=== PATIENT | female | born 1980 | race American Indian/Alaskan Native ===

== ENCOUNTER 2017-04-20 01:50 | Emergency (ER) | payer MEDICAID ==
[2017-04-20 02:10] VITALS: BP 131/70; PULSE 83; RESP 16; TEMP 98.8; O2SAT 99
--- NOTE | 2017-04-20 02:17 | ED PDOC ---
HPI: Dental Pain/Injury Time Seen by Provider: 04/20/17 02:10 Chief Complaint (Nursing): ENT Problem Chief Complaint (Provider): dental pain History Per: Patient Additional Complaint(s): 36-year-old female with no past medical history presents to emergency department with dental pain and facial swelling 3 days. Patient states that she took Excedrin today but this did not help the pain. Pain became so severe prompting ED visit. Patient denies fever or chills. She has pain to left lower jaw that radiates into her ear. She is tolerating liquids and solids. Past Medical History Reviewed: Historical Data, Nursing Documentation, Vital Signs Vital Signs: Last Vital Signs Temp 98.8 F 04/20/17 02:06 Pulse 83 04/20/17 02:06 Resp 16 04/20/17 02:06 BP 131/70 04/20/17 02:06 Pulse Ox 99 04/20/17 02:06 - Medical History PMH: No Chronic Diseases - Surgical History Surgical History: No Surg Hx - Family History Family History: States: No Known Family Hx - Living Arrangements Living Arrangements: With Family - Social History Current smoker - smoking cessation education provided: No Alcohol: None Drugs: Denies - Home Medications Home Medications: Ambulatory Orders Medication Instructions Recorded Clindamycin [Cleocin] 300 mg PO TID #21 cap 04/20/17 traMADol [Ultram] 50 mg PO TID PRN #15 tab 04/20/17 - Allergies Allergies/Adverse Reactions: Allergies Allergy/AdvReac Type Severity Reaction Status Date / Time No Known Allergies Allergy Verified 04/20/17 02:10 Review of Systems ROS Statement: Except As Marked, All Systems Reviewed And Found Negative Constitutional: Negative for: Fever ENT: Positive for: Other (dental pain) Physical Exam - Reviewed Nursing Documentation Reviewed: Yes Vital Signs Reviewed: Yes - Physical Exam Appears: Positive for: Well, Non-toxic, No Acute Distress Skin: Negative for: Rash Eye Exam: Positive for: Normal appearance ENT: Positive for: Other (Recent tooth is noted to left lower mandible protruding through the gums, mild gingival erythema and swelling noted with no discrete abscess or active drainage, full range of motion lower mandible, mild swelling noted to left mandibular region with no facial cellulitis) Neck: Positive for: Normal Neurologic/Psych: Positive for: Alert, Oriented - Laboratory Results Urine POC: Negative - ECG O2 Sat by Pulse Oximetry: 99 Pulse Ox Interpretation: Normal Medical Decision Making Medical Decision Making: Patient: Dental pain Plan: test Tylenol and Motrin Tramadol Initial dose clindamycin Patient given prescriptions for clindamycin and tramadol. She was advised to contact dentist to arrange for follow-up visit this coming week. Disposition - Clinical Impression Clinical Impression: Pain, dental - Patient ED Disposition Is Patient to be Admitted: No Counseled Patient/Family Regarding: Diagnosis, Need For Followup, Rx Given - Disposition Referrals: Jackson Jones MD [Primary Care Provider] - Disposition: Routine/Home Disposition Time: 02:15 Condition: STABLE Additional Instructions: Continue with [id number] Tylenol every 4 hours and ibuprofen every 6 hours alternating for pain control. Take prescription meds as directed. Call dentist first thing in the morning to arrange for appointment this week. Prescriptions: Clindamycin [Cleocin] 300 mg PO TID #21 cap traMADol [Ultram] 50 mg PO TID PRN #15 tab PRN Reason: Pain, Moderate (4-7) Instructions: Toothache (ED) Forms: [facility] ([place])
== END 2017-04-20 02:50 | disposition home or self-care (01) ==
LOC: H.ER 01:50
DX: K08.89 Other specified disorders of teeth and supporting structures (principal)

== ENCOUNTER 2017-12-29 10:20 | Emergency (ER) | payer MEDICAID ==
[2017-12-29 10:45] VITALS: O2SAT 100
[2017-12-29 10:48] VITALS: BMI 21.5
--- NOTE | 2017-12-29 12:31 | ED PDOC ---
HPI: Female Pain Time Seen by Provider: 12/29/17 10:52 Chief Complaint (Nursing): Abdominal Pain Chief Complaint (Provider): Abdominal cramping History Per: Patient History/Exam Limitations: no limitations Additional Complaint(s): Pt @ 4 weeks gestation presents with lower abdominal cramping X 1 week, took Advil without relief. Denies fever, nausea, vomiting, constipation, diarrhea, dysuria, hematuria, vaginal discharge, vaginal bleeding. Abnormal Vaginal Bleeding: No Last Menstral Period: 11/17/17 : 3 Para: 0 Past Medical History Reviewed: Nursing Documentation, Vital Signs Vital Signs: Last Vital Signs Temp 98 F 12/29/17 10:45 Pulse 89 12/29/17 10:45 Resp BP 113/75 12/29/17 10:45 Pulse Ox 100 12/29/17 10:45 - Medical History PMH: Hypothyroidism - Surgical History Surgical History: No Surg Hx - Family History Family History: States: Unknown Family Hx - Social History Current smoker - smoking cessation education provided: No Alcohol: None - Immunization History Hx Tetanus Toxoid Vaccination: No Hx Influenza Vaccination: No Hx Pneumococcal Vaccination: No - Home Medications Home Medications: Ambulatory Orders Medication Instructions Recorded Clindamycin [Cleocin] 300 mg PO TID #21 cap 04/20/17 traMADol [Ultram] 50 mg PO TID PRN #15 tab 04/20/17 Vit Calc,Iron,Folic 1 each PO DAILY #30 tablet 12/29/17 [ Vitamins] - Allergies Allergies/Adverse Reactions: Allergies Allergy/AdvReac Type Severity Reaction Status Date / Time No Known Allergies Allergy Verified 04/20/17 02:10 Review of Systems Constitutional: Negative for: Fever, Chills Cardiovascular: Negative for: Chest Pain Respiratory: Negative for: Cough, Shortness of Breath Gastrointestinal: Positive for: Abdominal Pain. Negative for: Nausea, Vomiting , Diarrhea Genitourinary Female: Negative for: Dysuria, Frequency, Incontinence, Hematuria , Vaginal Discharge, Vaginal Bleeding, Pelvic Pain Musculoskeletal: Negative for: Neck Pain, Back Pain Skin: Negative for: Rash, Lesions Neurological: Negative for: Headache Physical Exam - Reviewed Nursing Documentation Reviewed: Yes Vital Signs Reviewed: Yes - Physical Exam Appears: Positive for: Well, No Acute Distress Skin: Positive for: Normal Color, Warm Eye Exam: Positive for: Normal appearance, EOMI, PERRL Cardiovascular/Chest: Positive for: Regular Rate, Rhythm Respiratory: Positive for: Normal Breath Sounds Gastrointestinal/Abdominal: Positive for: Bowel Sounds, Soft, Tenderness (Mild suprapubic). Negative for: Mass, Guarding, Rebound Back: Positive for: Normal Inspection. Negative for: L CVA Tenderness, R CVA Tenderness Extremity: Positive for: Normal ROM Neurologic/Psych: Positive for: Alert, Oriented - Laboratory Results Result Diagrams: 12/29/17 12:55 12/29/17 12:55 - ECG O2 Sat by Pulse Oximetry: 100 Pulse Ox Interpretation: Normal - Physician Consult Information Time Consulting Physican Contacted: 14:39 Physician Contacted: Dylan Shaver Outcome Of Conversation: Recommends return to ED in 2 days for repeat beta and ultrasound. Medical Decision Making Medical Decision Makin yo @ 4 weeks with abdominal cramping. - labs - pelvic ultrasound Pt refused IV catheter. Accession No. : [id number] Patient Name / ID : ANGEL VALVERDE / [id number] Exam Date : 12/29/2017 13:10:57 ( Approved ) Study Comment : Sex / Age : F / 37Y Creator : Perla Caceres MD Dictator : Perla Caceres MD Environmental Compliance Manager : Bandsaw Operator : Perla Caceres MD Approver2 : Report Date : 12/29/2017 14:35:26 My Comment : This report is currently processing and HAS NOT BEEN OFFICIALLY SIGNED BY THE PHYSICIAN - ESTIMATED TIME OF APPROVAL IS 12/29/2017 14:41. HISTORY: Abd cramping COMPARISON: None available. TECHNIQUE: Transvaginal pelvic ultrasound was performed. FINDINGS: UTERUS: Enlarged and measures 12.7 x 0.8 x 0.4 cm. Anteverted. There are multiple large intramural fibroids, the largest fibroid along the right lateral wall measures 6.4 x 6.6 x 4.8 cm and the largest anterior wall fibroid measures 2.8 x 3.3 x 2.8 cm. ENDOMETRIUM: The central endometrial echo complex is thickened and measures 4.0 cm. No intrauterine gestation. CERVIX: No cervical abnormality identified. RIGHT OVARY: Measures 4.11 x 2.52 x 2.0 cm. No solid mass. Normal flow. There is a 2.1 x 2.2 x 1.9 cm complicated cyst. LEFT OVARY: Measures 3.70 x 3.63 x 2.0 cm. No solid mass. Normal flow. There is a 3.5 x 3.2 x 1.3 cm complicated/hemorrhagic cyst. FREE FLUID: There is trace free fluid in the cul de sac. OTHER FINDINGS: None. IMPRESSION: 1. Enlarged fibroid uterus. The central endometrial echo complex is thickened. No evidence of intrauterine gestation. 2. 3.5 cm complicated/hemorrhagic cyst in the left ovary. Follow-up ultrasound in 3-6 month interval is recommended to assess stability/resolution. Findings discussed in detail with patient and significant other, advised to avoid Advil/Motrin/Ibuprofen. Disposition - Clinical Impression Clinical Impression: Abdominal pain during - Patient ED Disposition Is Patient to be Admitted: No - Disposition Disposition: Routine/Home Disposition Time: 14:40 Condition: IMPROVED Additional Instructions: RETURN TO ER IN 48 HOURS FOR REPEAT BETA HCG AND ULTRASOUND. Prescriptions: Vit Calc,Iron,Folic [ Vitamins] 1 each PO DAILY #30 tablet Instructions: - The First Month Forms: [email or web address] (Turkmen)
[2017-12-29 13:00] LABS: SQUAMOUS EPITHIAL 3 /hpf (0-5); URINE AMORPHOUS SEDIMENT RARE /ul (<OCC); URINE BILIRUBIN NEGATIVE (NEGATIVE); URINE BLOOD NEGATIVE (NEGATIVE); URINE CLARITY SLIGHTY-CLOUDY (Clear); URINE COLOR YELLOW (YELLOW); URINE GLUCOSE (UA) NEG (Normal); URINE LEUKOCYTE ESTERASE NEG Leu/uL (Negative); URINE PROTEIN NEGATIVE (NEGATIVE); URINE UROBILINOGEN 0.2-1.0 mg/dL (0.2-1.0)
[2017-12-29 13:25] LABS: BASO # 0.1 K/uL (0.0-0.2); EOS # 0.2 K/uL (0.0-0.7); EOS % 3.5 % (0.0-4.0); HEMOGLOBIN 13.8 g/dL (12.0-16.0); LYMPH % 31.6 % (20.0-40.0); MEAN CELL VOLUME 82.5 fl (81.0-99.0); MEAN CORPUSCULAR HEMOGLOBIN 27.4 pg (27.0-31.0); MEAN CORPUSCULAR HGB CONC 33.2 g/dL (33.0-37.0); MEAN PLATELET VOLUME 8.4 fl (7.2-11.7); MONO # 0.6 K/uL (0.0-0.8); MONO % 9.1 % (0.0-10.0); NEUT # 3.5 K/uL (1.8-7.0); NEUT % 54.8 % (50.0-75.0); NRBC % 0.2 % (0.0-0.0); RBC 5.03 Mil/uL (3.80-5.20); RED CELL DISTRIBUTION WIDTH 13.9 % (11.5-14.5); WHITE BLOOD COUNT 6.3 K/uL (4.8-10.8)
[2017-12-29 13:26] LABS: ALB/GLOB RATIO 1.2 (1.0-2.1); ALBUMIN 4.5 g/dL (3.5-5.0); ALT/SGPT 32 U/L (9-52); AST/SGOT 24 U/L (14-36); BLOOD UREA NITROGEN 11 mg/dl (7-17); CALCIUM 9.5 mg/dL (8.4-10.2); GFR AFRICAN-AMERICAN > 60; GFR NON-AFRICAN AMERICAN > 60
--- NOTE | 2017-12-29 14:37 | US ---
HISTORY: Abd cramping COMPARISON: None available. TECHNIQUE: Transvaginal pelvic ultrasound was performed. FINDINGS: UTERUS: Enlarged and measures 12.7 x 0.8 x 0.4 cm. Anteverted. There are multiple large intramural fibroids, the largest fibroid along the right lateral wall measures 6.4 x 6.6 x 4.8 cm and the largest anterior wall fibroid measures 2.8 x 3.3 x 2.8 cm. ENDOMETRIUM: The central endometrial echo complex is thickened and measures 4.0 cm. No intrauterine gestation. CERVIX: No cervical abnormality identified. RIGHT OVARY: Measures 4.11 x 2.52 x 2.0 cm. No solid mass. Normal flow. There is a 2.1 x 2.2 x 1.9 cm complicated cyst. LEFT OVARY: Measures 3.70 x 3.63 x 2.0 cm. No solid mass. Normal flow. There is a 3.5 x 3.2 x 1.3 cm complicated/hemorrhagic cyst. FREE FLUID: There is trace free fluid in the cul de sac. OTHER FINDINGS: None. IMPRESSION: 1. Enlarged fibroid uterus. The central endometrial echo complex is thickened. No evidence of intrauterine gestation. 2. 3.5 cm complicated/hemorrhagic cyst in the left ovary. Follow-up ultrasound in 3-6 month interval is recommended to assess stability/resolution.
[2017-12-29 14:46] VITALS: BP 115/69; PULSE 75; RESP 16; TEMP 98.1
== END 2017-12-29 14:46 | disposition home or self-care (01) ==
LOC: H.ER 10:20
DX: O26.91 Pregnancy related conditions, unspecified, first trimester (principal); R10.2 Pelvic and perineal pain; Z3A.01 Less than 8 weeks gestation of pregnancy

== ENCOUNTER 2018-01-17 18:49 | Emergency (ER) | payer MEDICAID ==
[2018-01-17 18:50] VITALS: BMI 21.5
[2018-01-17 19:21] VITALS: RESP 18
[2018-01-17 20:29] LABS: BASO # 0.1 K/uL (0.0-0.2); EOS # 0.4 K/uL (0.0-0.7); EOS % 3.6 % (0.0-4.0); HEMOGLOBIN 13.3 g/dL (12.0-16.0); LYMPH # 2.2 K/uL (1.0-4.3); LYMPH % 21.2 % (20.0-40.0); MEAN CELL VOLUME 82.6 fl (81.0-99.0); MEAN CORPUSCULAR HEMOGLOBIN 27.1 pg (27.0-31.0); MEAN CORPUSCULAR HGB CONC 32.8 g/dL (33.0-37.0); MEAN PLATELET VOLUME 8.5 fl (7.2-11.7); MONO # 0.9 K/uL (0.0-0.8); MONO % 8.2 % (0.0-10.0); NEUT # 6.9 K/uL (1.8-7.0); RBC 4.89 Mil/uL (3.80-5.20); WHITE BLOOD COUNT 10.4 K/uL (4.8-10.8)
--- NOTE | 2018-01-17 21:20 | ED PDOC ---
HPI: Female Pain Time Seen by Provider: 01/17/18 19:50 Chief Complaint (Nursing): Female Genitourinary Chief Complaint (Provider): Vaginal Spotting History Per: Patient History/Exam Limitations: no limitations Onset/Duration Of Symptoms: Days (x1) Current Symptoms Are (Timing): Still Present Additional Complaint(s): female with 1 and 1 misscariage at approximately 5 weeks presenting for evaluation of vaginal spotting x1 day. Patient states usual spotting is heavier today. She confirms nausea and vomiting, but denies fever or diarrhea. Patient is positive for some history of autoimmune disease, but it is unknown at this time. Past Medical History Reviewed: Historical Data, Nursing Documentation, Vital Signs Vital Signs: Last Vital Signs Temp 98.6 F 01/17/18 19:17 Pulse 82 01/17/18 19:18 Resp 18 01/17/18 19:18 BP 121/80 01/17/18 19:17 Pulse Ox 99 01/17/18 19:18 - Medical History PMH: Hypothyroidism - Surgical History Surgical History: No Surg Hx - Family History Family History: States: Unknown Family Hx - Social History Current smoker - smoking cessation education provided: No Alcohol: Occasional Drugs: Denies - Immunization History Hx Tetanus Toxoid Vaccination: No Hx Influenza Vaccination: No Hx Pneumococcal Vaccination: No - Home Medications Home Medications: Ambulatory Orders Medication Instructions Recorded Clindamycin [Cleocin] 300 mg PO TID #21 cap 04/20/17 traMADol [Ultram] 50 mg PO TID PRN #15 tab 04/20/17 Vit Calc,Iron,Folic 1 each PO DAILY #30 tablet 12/29/17 [ Vitamins] - Allergies Allergies/Adverse Reactions: Allergies Allergy/AdvReac Type Severity Reaction Status Date / Time No Known Allergies Allergy Verified 04/20/17 02:10 Review of Systems ROS Statement: Except As Marked, All Systems Reviewed And Found Negative Constitutional: Negative for: Fever Gastrointestinal: Positive for: Nausea, Vomiting. Negative for: Diarrhea Genitourinary Female: Positive for: Vaginal Bleeding Physical Exam - Reviewed Nursing Documentation Reviewed: Yes Vital Signs Reviewed: Yes - Physical Exam Appears: Positive for: Non-toxic, No Acute Distress Head Exam: Positive for: ATRAUMATIC, NORMAL INSPECTION, NORMOCEPHALIC Skin: Positive for: Normal Color, Warm, Dry. Negative for: Rash Eye Exam: Positive for: EOMI, Normal appearance, PERRL Neck: Positive for: Normal, Painless ROM, Supple Cardiovascular/Chest: Positive for: Regular Rate, Rhythm. Negative for: Murmur Respiratory: Positive for: Normal Breath Sounds. Negative for: Respiratory Distress Gastrointestinal/Abdominal: Positive for: Normal Exam, Soft. Negative for: Tenderness Pelvic Exam: Positive for: Blood (some blood present, cervical os closed), Other (Environmental Educator was goat herder Toni) Back: Positive for: Normal Inspection. Negative for: L CVA Tenderness, R CVA Tenderness, Vertebral Tenderness Extremity: Positive for: Normal ROM. Negative for: Pedal Edema, Deformity Neurologic/Psych: Positive for: Alert, Oriented. Negative for: Motor/Sensory Deficits - Laboratory Results Result Diagrams: 01/17/18 20:20 01/17/18 21:06 - ECG O2 Sat by Pulse Oximetry: 99 (RA) Pulse Ox Interpretation: Normal Medical Decision Making Medical Decision Making: Initial Impression: r/o ectopic vs threatened Plan: --Blood type and screen --CMP --CBC w/ differential --US OB 1st trimester --Reevaluation 2330 US FINDINGS: Gestation: An ovoid, somewhat irregular endometrial cystic structure likely an early gestational sac, corresponding to a gestational age of 5 weeks, 3 days. No yolk sac or pole is seen. Placenta/amniotic fluid: Cannot be adequately evaluated due to the early gestational age. Uterus/cervix: Uterus is 10.7 x 8.3 x 8.4 cm and diffusely heterogeneous with multiple fibroids, measuring up to 6.9 cm. Endometrial stripe is not well seen. Ovaries: Normal bilateral color Doppler flow. No suspicious adnexal mass. Free fluid: No free fluid. IMPRESSION: Ovoid, somewhat irregular intrauterine gestational sac, corresponding to a gestational age of 5 weeks, 3 days. No yolk sac or pole is seen. Recommend close clinical and if necessary sonographic followup to confirm viability. Heterogeneous, fibroid uterus. 2345 Labs reviewed: no clinically significant abnormalities with the exception of being RH positive. Patient is stable for discharge home with advised follow up for diagnosis of uterine fibroids and threatened miscarriage with HCG test. Scribe Attestation: Documented by Fabio Breen, acting as a scribe for Gigi Tang MD. Provider Scribe Attestation: All medical record entries made by the Scribe were at my direction and personally dictated by me. I have reviewed the chart and agree that the record accurately reflects my personal performance of the history, physical exam, medical decision making, and the department course for this patient. I have also personally directed, reviewed, and agree with the discharge instructions and disposition. Disposition - Clinical Impression Clinical Impression: Threatened - Patient ED Disposition Is Patient to be Admitted: No Counseled Patient/Family Regarding: Studies Performed, Diagnosis - Disposition Referrals: Adjunct Faculty Mathematics Department Service [Outside] Disposition: Routine/Home Disposition Time: 23:25 Condition: IMPROVED Additional Instructions: follow up in 2 days for repeat bloodwork return to the ED with any worsening or concerning symptoms Instructions: Threatened Miscarriage (DC), Uterine Fibroids (DC) Forms: [employer] ([place])
[2018-01-17 21:31] LABS: ALB/GLOB RATIO 1.2 (1.0-2.1); ALBUMIN 4.3 g/dL (3.5-5.0); ALT/SGPT 26 U/L (9-52); AST/SGOT 23 U/L (14-36); BLOOD UREA NITROGEN 14 mg/dl (7-17); CALCIUM 9.7 mg/dL (8.4-10.2); GFR AFRICAN-AMERICAN > 60; GFR NON-AFRICAN AMERICAN > 60
[2018-01-17 23:01] LABS: SQUAMOUS EPITHIAL 1 /hpf (0-5); URINE BACTERIA RARE (<OCC); URINE BILIRUBIN NEGATIVE (NEGATIVE); URINE BLOOD MODERATE (NEGATIVE); URINE CALCIUM OXALATE CRYSTALS OCC /hpf (<OCC); URINE CLARITY TURBID (Clear); URINE COLOR AMBER (YELLOW); URINE GLUCOSE (UA) NEG (Normal); URINE LEUKOCYTE ESTERASE NEG Leu/uL (Negative); URINE PROTEIN NEGATIVE (NEGATIVE); URINE UROBILINOGEN 0.2-1.0 mg/dL (0.2-1.0)
[2018-01-17] MEDS ORDERED: Sodium Chloride 0.9% 1,000 ML IV STA (23:04)
[2018-01-17 23:49] VITALS: BP 130/78; PULSE 79; TEMP 98
[2018-01-17 23:51] VITALS: O2SAT 99
--- NOTE | 2018-01-18 11:15 | US ---
PROCEDURE: OB Pelvic Ultrasound HISTORY: vag bleeding LMP: 11/22/2017 suggesting current gestational age of 8 weeks 1 day. COMPARISON: Transvaginal pelvic ultrasound 12/29/2017. FINDINGS: Transabdominal and transvaginal pelvic ultrasound was performed with longitudinal and transverse images submitted for interpretation. UTERUS: The uterus is anteverted measuring 10.0 x 8.3 x 8.4 cm enlarged by multiple heterogeneous fibroids. Fibroids obscure the mid to lower uterine segment portion of the endometrium with a cystic focus at the mid to upper endometrium felt to represent a gestational sac with a mean sac diameter of 1.2 cm corresponding to ultrasonic age of 5 weeks 3 days. This discrepant from LMP derived dates of 8 weeks 1 day. No pole yolk sac is identified at this time which is not unusual for 5 week 3 day gestation. The decidual reaction appears somewhat irregular a small hemorrhages are not excluded though likely late subacute or chronic duration given dark hypoechoic appearance. At the lower uterine segment, there is 0 mildly large fibroid measuring 6.9 x 6.1 x 6.8 cm bridging submucous and sub serosal spaces. At the same level at the anterior lower uterine segment is a smaller fibroid measuring 5.4 x 5.2 x 3.1 cm subserosal and submucous in location with the endometrium likely displaced to abut it by the larger posterior fibroid. No additional myometrial lesions identified. CERVIX: Cervix appears unremarkable. RIGHT OVARY: Measures 3.6 x 3.5 x 3.0 cm. No mass lesion. Normal flow. LEFT OVARY: Measures 4.1 x 2.0 x 2.6 cm. No solid mass. Normal flow. FREE FLUID: None. OTHER FINDINGS: None. IMPRESSION: A gestational sac is identified with an irregular decidual reaction. Mean sac diameter suggests 5 week 3 day gestation. No pole yolk sac is yet identifiable at this time. Consider potential early intrauterine gestation, potentially viable, though failure of gestation is not excluded. No ectopic gestation is identified though this is not completely excluded. Follow-up serial beta HCG analysis is recommended as well as one-week ultrasound follow-up. Enlarged fibroid uterus is appreciated once again as discussed above. Concordant preliminary report from [facility], 01/17/2018.
== END 2018-01-18 00:02 | disposition home or self-care (01) ==
LOC: H.ER 18:49
DX: O20.0 Threatened abortion (principal); D25.9 Leiomyoma of uterus, unspecified; E03.9 Hypothyroidism, unspecified; O21.9 Vomiting of pregnancy, unspecified; O99.281 Endocrine, nutritional and metabolic diseases complicating pregnancy, first trimester; Z3A.01 Less than 8 weeks gestation of pregnancy
CPT/HCPCS: 76815; 76817; 80053; 81003; 84702; 85025; 86850; 86900; 87086; 96360; 99284; J7030

== ENCOUNTER 2018-01-18 12:08 | Emergency (ER) | payer MEDICAID ==
[2018-01-18 12:08] VITALS: BMI 21.5
[2018-01-18] MEDS ORDERED: Sodium Chloride 0.9% 1,000 ML IV STA (12:39)
--- NOTE | 2018-01-18 12:43 | ED PDOC ---
HPI: Female Pain Time Seen by Provider: 01/18/18 12:17 Chief Complaint (Nursing): Abdominal Pain Chief Complaint (Provider): with bleeding History Per: Patient Additional Complaint(s): 37 year old (1 miscarriage, 1 ) presents with abdominal pain and heavy bleeding that started at 6 AM. Patient was seen last night for same and was discharged with diagnosis of threatened . She returns today with persistent vomiting, worsening pain and heavier vaginal bleeding. She denies any passage of clots. No fever or chills. Patient arrives via ambulance. OB: none Past Medical History Reviewed: Historical Data, Nursing Documentation, Vital Signs - Medical History PMH: No Chronic Diseases - Surgical History Surgical History: No Surg Hx - Family History Family History: States: No Known Family Hx - Living Arrangements Living Arrangements: With Family - Social History Current smoker - smoking cessation education provided: No Alcohol: None Drugs: Denies - Home Medications Home Medications: Ambulatory Orders Medication Instructions Recorded Clindamycin [Cleocin] 300 mg PO TID #21 cap 04/20/17 traMADol [Ultram] 50 mg PO TID PRN #15 tab 04/20/17 Vit Calc,Iron,Folic 1 each PO DAILY #30 tablet 12/29/17 [ Vitamins] Naproxen [Naprosyn] 500 mg PO BID #20 tab 01/18/18 traMADol [Ultram] 50 mg PO Q6H PRN #12 tab 01/18/18 - Allergies Allergies/Adverse Reactions: Allergies Allergy/AdvReac Type Severity Reaction Status Date / Time No Known Allergies Allergy Verified 04/20/17 02:10 Review of Systems ROS Statement: Except As Marked, All Systems Reviewed And Found Negative Constitutional: Negative for: Fever Gastrointestinal: Positive for: Nausea, Vomiting, Abdominal Pain Genitourinary Female: Positive for: Vaginal Bleeding, Pelvic Pain. Negative for : Dysuria Physical Exam - Reviewed Nursing Documentation Reviewed: Yes Vital Signs Reviewed: Yes - Physical Exam Appears: Positive for: Well, Non-toxic, No Acute Distress Skin: Positive for: Normal Color. Negative for: Rash Eye Exam: Positive for: Normal appearance Cardiovascular/Chest: Positive for: Regular Rate, Rhythm Respiratory: Positive for: Normal Breath Sounds Pelvic Exam: Positive for: Other (Patient could not tolerate speculum insertion , bimanual exam demonstrates moderate bleeding from closed cervical os, no large clots noted, moderate uterine tenderness, no adnexal tenderness bilaterally) Extremity: Positive for: Normal ROM Neurologic/Psych: Positive for: Alert, Oriented - Laboratory Results Result Diagrams: 01/18/18 13:03 01/18/18 13:03 Urine dip results: Positive for: Blood (moderate). Negative for: Leukocyte Esterase, Nitrate, Ketones, Glucose, Bilirubin, Protein - ECG O2 Sat by Pulse Oximetry: 99 Pulse Ox Interpretation: Normal - Other Rad TV OB US X-Ray: Read By Radiologist X-Ray Interpretation: see below Medical Decision Making Medical Decision Makin37 year old female with abdominal pain and vaginal bleeding Plan: CBC CMP Beta quant IVF IV toradol IV zofran K is low at 3.1 - oral Kdur 40 given. Beta from yesterday - 5109 Beta from today - 3684 Blood type - B positive US from 01/17/18 at 22:05 - UTERUS: The uterus is anteverted measuring 10.0 x 8.3 x 8.4 cm enlarged by multiple heterogeneous fibroids. Fibroids obscure the mid to lower uterine segment portion of the endometrium with a cystic focus at the mid to upper endometrium felt to represent a gestational sac with a mean sac diameter of 1.2 cm corresponding to ultrasonic age of 5 weeks 3 days. This discrepant from LMP derived dates of 8 weeks 1 day. No pole yolk sac is identified at this time which is not unusual for 5 week 3 day gestation. The decidual reaction appears somewhat irregular a small hemorrhages are not excluded though likely late subacute or chronic duration given dark hypoechoic appearance. At the lower uterine segment, there is 0 mildly large fibroid measuring 6.9 x 6.1 x 6.8 cm bridging submucous and sub serosal spaces. At the same level at the anterior lower uterine segment is a smaller fibroid measuring 5.4 x 5.2 x 3.1 cm subserosal and submucous in location with the endometrium likely displaced to abut it by the larger posterior fibroid. No additional myometrial lesions identified. CERVIX: Cervix appears unremarkable. RIGHT OVARY : Measures 3.6 x 3.5 x 3.0 cm. No mass lesion. Normal flow. LEFT OVARY: Measures 4.1 x 2.0 x 2.6 cm. No solid mass. Normal flow. FREE FLUID: None. OTHER FINDINGS: None. IMPRESSION: A gestational sac is identified with an irregular decidual reaction. Mean sac diameter suggests 5 week 3 day gestation. No pole yolk sac is yet identifiable at this time. Consider potential early intrauterine gestation, potentially viable, though failure of gestation is not excluded. No ectopic gestation is identified though this is not completely excluded. Follow-up serial beta HCG analysis is recommended as well as one-week ultrasound follow-up. Enlarged fibroid uterus is appreciated once again as discussed above. Concordant preliminary report from [facility], 01/17/2018. Case was d/w OB web production designer, Dr. Logan. Patient is actively miscarrying, there is no indication for repeat ultrasound at this time as beta is trending down. Dr. Logan recommends pain control and follow-up next week with clinic. 13:54 - Patient feels much better after administration of Toradol and Zofran. IVF infusing. 14:42 - Patient is resting comfortably. She will be discharged with prescriptions for Naprosyn and tramadol. Advised fluids, rest and follow-up with clinic in one week. Patient aware she can return any time if acutely worse. Disposition - Clinical Impression Clinical Impression: Miscarriage - Patient ED Disposition Is Patient to be Admitted: No Counseled Patient/Family Regarding: Studies Performed, Diagnosis, Need For Followup, Rx Given - Disposition [facility]errals: [facility]] Disposition: Routine/Home Disposition Time: 14:43 Condition: STABLE Additional Instructions: Take prescription meds as directed as needed for pain. Rest as much as possible and drink plenty of fluids. Follow-up next week with women's clinic or return any time if worse. Prescriptions: Naproxen [Naprosyn] 500 mg PO BID #20 tab traMADol [Ultram] 50 mg PO Q6H PRN #12 tab PRN Reason: Pain, Moderate (4-7) Instructions: Miscarriage, Dealing With Miscarriage Forms: [employer] ([place]) Results - Lab Results Lab Results: 01/18/18 01/18/18 01/18/18 13:03 13:03 13:03 WBC 12.0 H RBC 4.85 Hgb 12.9 Hct 40.0 MCV 82.5 MCH 26.6 L MCHC 32.3 L RDW 13.6 Plt Count 193 MPV 8.3 Neut % (Auto) 86.0 H Lymph % (Auto) 8.0 L [place] % (Auto) 4.2 Eos % (Auto) 1.3 Baso % (Auto) 0.5 Neut # (Auto) 10.3 H Lymph # (Auto) 1.0 [place] # (Auto) 0.5 Eos # (Auto) 0.2 Baso # (Auto) 0.1 Neutrophils % (Manual) Pending Lymphocytes % (Manual) Pending Monocytes % (Manual) Pending Platelet Estimate Pending PT 11.3 INR 1.0 APTT 28.2 Sodium 139 Potassium 3.1 L Chloride 104 Carbon Dioxide 20 L Anion Gap 18 BUN 9 Creatinine 0.5 L Est GFR ( Amer) > 60 Est GFR (Non-Af Amer) > 60 Random Glucose 110 H Calcium 8.6 Total Bilirubin 0.7 AST 29 ALT 26 Alkaline Phosphatase 45 Total Protein 8.1 Albumin 4.4 Globulin 3.7 Albumin/Globulin Ratio 1.2 Beta HCG, Quant 3684.40
[2018-01-18 13:07] LABS: BASO # 0.1 K/uL (0.0-0.2); BASO % 0.5 % (0.0-2.0); EOS # 0.2 K/uL (0.0-0.7); EOS % 1.3 % (0.0-4.0); HEMOGLOBIN 12.9 g/dL (12.0-16.0); MEAN CELL VOLUME 82.5 fl (81.0-99.0); MEAN CORPUSCULAR HEMOGLOBIN 26.6 pg (27.0-31.0); MEAN CORPUSCULAR HGB CONC 32.3 g/dL (33.0-37.0); MEAN PLATELET VOLUME 8.3 fl (7.2-11.7); MONO # 0.5 K/uL (0.0-0.8); MONO % 4.2 % (0.0-10.0); NEUT # 10.3 K/uL (1.8-7.0); PLATELET COUNT 193 K/uL (130-400); RBC 4.85 Mil/uL (3.80-5.20); RED CELL DISTRIBUTION WIDTH 13.6 % (11.5-14.5)
[2018-01-18 13:24] LABS: ALB/GLOB RATIO 1.2 (1.0-2.1); ALBUMIN 4.4 g/dL (3.5-5.0); ALT/SGPT 26 U/L (9-52); AST/SGOT 29 U/L (14-36); BLOOD UREA NITROGEN 9 mg/dl (7-17); CALCIUM 8.6 mg/dL (8.4-10.2); GFR AFRICAN-AMERICAN > 60; GFR NON-AFRICAN AMERICAN > 60
[2018-01-18 13:25] LABS: PARTIAL THROMBOPLASTIN TIME 28.2 Seconds (25.6-37.1); PROTHROMBIN TIME 11.3 Seconds (9.8-13.1)
[2018-01-18] MEDS ORDERED: Potassium Chloride 20 mEq ER Tab PO STA (13:36)
[2018-01-18] MEDS ORDERED: Potassium Chloride 20 mEq ER Tab PO ONE (13:51)
[2018-01-18 13:55] VITALS: O2SAT 99
[2018-01-18 15:14] LABS: EOSINOPHIL 1 % (0-7); LYMPHOCYTE 9 % (20-50); MONOCYTE 5 % (0-10); NEUTROPHIL 85 % (42-75); PLATELET ESTIMATE NORMAL (NORMAL); TOTAL CELLS COUNTED 100
[2018-01-18 15:47] VITALS: BP 120/70; PULSE 82; RESP 16; TEMP 98
== END 2018-01-18 15:15 | disposition home or self-care (01) ==
LOC: H.ER 12:08
DX: O03.9 Complete or unspecified spontaneous abortion without complication (principal); O34.11 Maternal care for benign tumor of corpus uteri, first trimester; D25.9 Leiomyoma of uterus, unspecified; Z3A.01 Less than 8 weeks gestation of pregnancy
CPT/HCPCS: 80053; 84702; 85025; 85610; 85730; 96374; 96375; 99284; J1885; J2405; J7030